=== PATIENT | male | born 1995 | race Caucasian/White ===

== ENCOUNTER 2021-12-20 13:19 | Outpatient (CLI) | payer OTHER ==
[2021-12-20 14:31] VITALS: BP 123/76
--- NOTE | 2021-12-20 14:31 | SLEEP CARE CONSULTATION ---
Information from patient questionnaire entered by Lucille Gaxiola MA. I have reviewed and concur with the information entered by Lucille Gaxiola MA. This document represents the service I personally performed and the decisions made by me, Marian Bains ARNP. History of Present Illness Service Date and Time: 12/20/2021 1319 Reason for Visit: New patient (ONSET 10/22/21, NO PRIORS,) Chief Complaint: reports: Insomnia, Unrefreshed sleep, Snoring, Observed pauses in breathing, Fatigue, Frequent awakenings at night, Other Date of Onset: 2-3 MONTHS Usual bedtime: 930 - 1000 PM Time it takes to fall asleep: 15 MINUTES-1 HOUR Snores at night: Yes Observed to quit breathing while asleep: Yes Sleeps alone due to snoring: No Number of times waking at night: 4-5 Reasons for waking at night: reports: Gasping for air, Other (unknown reasons) Toss, Turn, or Twitch while sleeping: Yes Recalls having dreams: Yes (SOMETIMES) Usually gets out of bed at: 0500; 0730 on weekends Feels refreshed in the morning: No Morning headache: No Sleepy or fatigued during the day: Yes Ever fallen asleep while driving: Yes (no drowsy driving or accidents) Takes day naps: No Dreams during day naps: No Prior sleep studies: No Additional HPI information: I had the pleasure of seeing NARGIS SWANSON today regarding the possibility of him having a sleep disorder. His current complaints are fatigue, frequent night awakenings, insomnia, observed pauses in breathing, snoring and unrefreshed sleep. He states that in the last few months. He is waking up just after falling asleep with a gasp and feeling anxious. He will eventually will fall asleep, sometimes quickly and other times a few hours. After he falls asleep, he will wake up 4-5 times on average without same experience but he does remember them. He had an appointment with his PCM who prescribed him Doxepine which does help him stay asleep but he does not feel rested overall. He ran out of the doxepine 3-4 days ago and his waking up episodes again. He has been snoring for a long time. His has heard him sound like he is not breathing and then adjust and start snoring again but this is not very often. He states before 2-3 months ago he did snore but he did not have daytime fatigue. He states he has had some increase in stress in his life. He states he has been trying to lose weight and has lost a few pounds from cutting back on fast foods and exercising more. He cut out energy drinks but does take a caffeine pill supplement. If he does not do this he is very foggy headed and fatigued during the day. - Parasomnia Symptoms Ever been unable to move upon waking from sleep: Yes (quite a few times in past but not in last few month) Walks in sleep: No Talks in sleep: Yes (according to ) Ever acted out dreams in sleep: No Ever felt weak in the knees when startled or emotional: No Bothered by creepy, crawly, restless sensations in legs: Yes (started in last couple of months) Problems with memory or concentration: No Subjective Initial [place] Sleepiness Scale score: 9 (2021) Past Medical History Past Medical History: reports: Other (Laser eye surgery scheduled for later this month) Social History The patient's occupation is a [employer]. Patient is and lives in [place]. Have you smoked in the past 12 months: No (VAPE - stopped a few months ago) Quit date: 2 MONTHS QUIT Alcohol use: Yes Alcohol amount and frequency: 2-3 glasses of wine X WEEKLY Caffeine use: Yes Caffeine amount and frequency: 1 caffeine supplement (oral) X DAILY Family History Family history of sleep disordered breathing: No (don't know) Allergies and Home Medications Drug allergies reviewed: Yes (NKDA) Home medication list reviewed: Yes Allergy and home medication list: Zinc Vitamin D Vitamin B12 Caffeine tablet, OTC Review of Systems Ear/Nose/Throat: reports: wisdom teeth removed. denies: tonsillectomy Endocrine: reports: sluggishness (hits about 11AM) Physical Exam Blood Pressure: 123/76 (LEFT, PULSE78, RESP 18,) Heart Rate: 72 (CLOTH MASK) O2 Saturation: 99 Height: 6 ft 5 in Weight: 237 lb Body Mass Index: 28.0 BMI Classification: Overweight Neck circumference: 17 (inches) Mouth and throat: normal Soft palate: normal Hard palate: normal Uvula: normal Uvula visualization: 100% Mallampati Class I Tongue: enlarged in size with teeth mcnair on lateral edges Tonsils: 1+ Neck: normal w/o lymphadenopathy or thyromegaly Heart: regular rate and rhythm Lungs: clear bilaterally Impression and Plan 1. Suspected Obstructive Sleep Apnea-Hypopnea Syndrome, as suggested by a history of loud and irregular snoring, observed cessation of breath while asleep, gasping in sleep, frequent awakening during the night, unrefreshed sleep, and excessive daytime sleepiness. Narrow oropharynx and obesity are common predisposing factors for obstructive sleep apnea-hypopnea syndrome. I recommend proceeding to polysomnography to confirm the diagnosis and to assess severity. If the patient has significant sleep disordered breathing, a manual CPAP titration study will also be performed to find the optimal treatment pressure. I informed the patient of what the sleep studies involve and after some discussion, obtained agreement to proceed. The pathophysiology of obstructive sleep apnea-hypopnea syndrome was discussed with the patient and health risks of cardiovascular and cerebrovascular disease if not treated. Risks of drowsy driving discussed in detail and patient advised to avoid long distance driving and to slab puller at the first sign of drowsiness. Patient agreed to plan. * Schedule polysomnography +- manual CPAP titration study and return in 1-2 weeks after the study to discuss result and initiate therapy. * Avoid long distance driving or driving when feeling sleepy. * Avoid alcohol, sedative and muscle relaxant around bedtime. * Maintain a healthy weight. * Review instructions provided by trained office staff on how to prepare for the sleep study. * Return for follow-up after sleep study completed. Counseling Topics: Weight loss health impact Visit Type: In Office Time Spent with Patient (minutes): 32 Provider Statement: I spent 100% of the Face to Face Visit with the patient with greater than 50% spent counseling the patient and coordination of care.
== END 2021-12-20 13:20 | disposition home or self-care (01) ==
LOC: SC 13:19
PROVIDERS: ATTEND Nurse Practitioner Family
DX: R06.83 Snoring (principal); R06.81 Apnea, not elsewhere classified; G47.8 Other sleep disorders; G47.10 Hypersomnia, unspecified
CPT/HCPCS: 99203; 99212

== ENCOUNTER 2021-12-27 20:39 | Outpatient (CLI) | payer OTHER | END 2021-12-27 20:40 | disposition home or self-care (01) | LOC: SC 20:39 | PROVIDERS: ATTEND Nurse Practitioner Family | DX: G47.63 Sleep related bruxism (principal); R06.83 Snoring; G47.8 Other sleep disorders; R06.81 Apnea, not elsewhere classified | CPT/HCPCS: 95810 ==

== ENCOUNTER 2022-01-10 13:19 | Outpatient (CLI) | payer OTHER ==
[2022-01-10 13:53] VITALS: BP 125/72
--- NOTE | 2022-01-10 13:53 | SLEEP CARE CONSULTATION ---
Information from patient questionnaire entered by Lucille Gaxiola MA. I have reviewed and concur with the information entered by Lucille Gaxiola MA. This document represents the service I personally performed and the decisions made by Nara linares Caren J, ARNP. History of Present Illness Service Date and Time: 01/10/2022 1319 Initial [place] Sleepiness Scale score: 9 (2021) Current [place] Sleepiness Scale score: 10 (12/2021) Additional HPI information: NARGIS SWANSON returns for follow up and results of the recently performed in lab polysomnography. The patient was informed of the following findings: No significant sleep diso rdered breathing with an average AHI of 1.0 and wilder oxygen saturation of 88%. Patient snoring was infrequent light and he had bruxism noted during the study. I explained the pathophysiology behind obstructive sleep apnea. Patient does not have sleep apnea and was advised how weight gain could increase the risk of developing sleep apnea in the future. Patient has light and infrequent snoring. Snoring can be reduced by weight loss. Weight loss is best achieved with diet consult. Patient instructed to contact PCP for referral. Snoring can also be treated with an oral appliance from a dentist. Advised to check insurance coverage. In addition, an ENT evaluation can be do to see if other treatment is indicated. Patient counseled not drink alcohol less than 4 hours before bedtime as it can increase snoring and apnea. Patient was cautioned about risks of drowsy driving until sleepiness symptoms resolve. Patient denies drowsy driving. Sleep Study - Results Type of Sleep Study: Polysomnography (F/U POLY) Prior sleep studies: No Polysomnography/Home Sleep Study results: IMPRESSION: The quality of the study is good. The patient had normal sleep efficiency. The sleep architecture was normal as well. Respiratory monitoring showed no significant sleep disordered breathing (AHI = 1.0) or hypoxia (wilder oxygen saturation of 88%). The patient slept adequately in supine position (supine AHI = 1.4; nonsupine = 0.38). Snore was infrequent and light in intensity. There was no significant periodic leg movement of sleep. Cardiac rhythm was normal sinus rhythm without significant arrhythmia. The patient had bruxism. Allergies and Home Medications Known drug allergies: No Drug allergies reviewed: Yes Home medication list reviewed: Yes (no changes) Review of Systems Review of systems same as previous: Yes (LASER EYE SURGERY JANUARY 05, 2022, IBPROF. EYE DROPS,) Physical Exam Vital signs obtained and entered by: CASH HAMILTON Blood Pressure: 125/72 (RIGHT, PULSE 54, RESP 16,) Cuff size: wrist Heart Rate: 52 O2 Saturation: 99 (N95) Height: 6 ft 5 in Weight: 238 lb (PT CLOTHES) Body Mass Index: 28.2 BMI Classification: Overweight Impression and Plan 1. Snoring but no significant sleep disordered breathing. Patient has been experiencing some anxiety issues which may be the cause of his difficulty with maintaining sleep. He was advised to try to deal with these issues and find ways to reduce stress which may be contributing to his disruptions of sleep. He voice d understanding and agreement. A copy of [facility] pamphlet How to sleep better was given and explained to patient. Patient advised that often weight loss will reduce snoring as well as apnea risk. An oral appliance can also be used for snoring. This would require a dental consultation. Patient cautioned not to use other online appliances as can cause bite issues. A list of accredited dentists in [facility] who make oral appliances is available in the office. Patient is advised to check if insurance will cover. An ENT consult can also be helpful to determine if any other treatment is an option. 2. Bruxism (ICD-10 G47.63). Patient may follow up with dentist for further evaluation of need for treatment for bruxism. * Follow up with PCP for anxiety and stress symptoms * Attempt to lose weight * Avoid alcohol consumption near bedtime * Return in as needed for follow up. Counseling Topics: Weight loss health impact Visit Type: In Office Time Spent with Patient (minutes): 14 Provider Statement: I spent 100% of the Face to Face Visit with the patient with greater than 50% spent counseling the patient and coordination of care.
== END 2022-01-10 13:20 | disposition home or self-care (01) ==
LOC: SC 13:19
PROVIDERS: ATTEND Nurse Practitioner Family
DX: R06.83 Snoring (principal); G47.63 Sleep related bruxism; E66.3 Overweight; Z68.28 Body mass index [BMI] 28.0-28.9, adult
CPT/HCPCS: 99212